=== PATIENT | female | born 1990 | race Caucasian/White ===

== ENCOUNTER 2018-03-23 11:31 | Emergency (ER) | payer MEDICAID ==
[~2018-03-23] VITALS: Ht 154.9 cm; Wt 93.9 kg
[~2018-03-23 11:31] MED LIST: AUGMENTIN 875875 M1 PO; IBUPROFEN 800800 M1 PO; PERCOCET 5-3251 EACH PO; PRENATAL; ZOFRAN4 MG
[2018-03-23 12:25] VITALS: BP 123/72
== END 2018-03-23 12:26 | disposition home or self-care (01) ==
LOC: M.ERS 11:31
DX: O9A.211 Injury, poisoning and certain other consequences of external causes complicating pregnancy, first trimester (principal); Z3A.12 12 weeks gestation of pregnancy; R51 Headache; Y04.2XXA Assault by strike against or bumped into by another person, initial encounter; Y93.89 Activity, other specified; Y92.89 Other specified places as the place of occurrence of the external cause; Y99.8 Other external cause status